=== PATIENT | male | born 1975 | race African-American/Black ===

== ENCOUNTER 2020-10-28 01:44 | Emergency (ER) | payer MEDICAID, OTHER ==
[~2020-10-28] VITALS: Ht 177.8 cm; Wt 83.9 kg
--- NOTE | 2020-10-28 02:08 | NUR ---
Patient ambulated with steady gait into ER c/o intermitten nonradiating CP, describing pain as 6/10 shabazz pain that started 2 days ago. A/O x4, no SOB or labored breathing, afebrile. Clear speech, complete sentences.
--- NOTE | 2020-10-28 02:10 | NUR ---
Dr. Thompson at bedside, MSE in progress.
[2020-10-28 02:39] LABS: HEMATOCRIT 45.9 % (36.7-47.1); MEAN CORPUSCULAR HEMOGLOBIN 28.7 uug (23.8-33.4); MEAN CORPUSCULAR VOLUME 88.2 fL (73.0-96.2); PLATELET COUNT (AUTO) 320 K/uL (152-348)
[2020-10-28 02:51] LABS: BILIRUBIN,DIRECT 0.1 mg/dL (0.0-0.2); BILIRUBIN,TOTAL 0.2 mg/dL (0.2-1.0); CREATININE 1.3 mg/dL (0.6-1.3); POTASSIUM 3.8 mmol/L (3.5-5.1); TOTAL PROTEIN, SERUM 8.1 g/dL (6.4-8.2)
[2020-10-28] MEDS: MAG HYDROX/AL HYDROX/SIMETH 30 ML LIQUID UDC PO ONE (03:40)
[2020-10-28] MEDS: PANTOPRAZOLE SODIUM 40 MG TABLET.DR PO ONE (03:45)
[2020-10-28] MEDS ORDERED: PANTOPRAZOLE SODIUM 40 MG TABLET.DR PO ONE (03:50)
[2020-10-28] MEDS ORDERED: MAG HYDROX/AL HYDROX/SIMETH 30 ML LIQUID UDC ONE (03:50)
[2020-10-28] MEDS ORDERED: IV NORMAL SALINE 250 ML IV ONE (04:07)
[2020-10-28] MEDS ORDERED: SWABABLE VALVE TRANSFER SET EA MC ONE (04:07)
[2020-10-28] MEDS ORDERED: IOHEXOL 350 100 ML INFUS..BTL ONE (04:07)
--- NOTE | 2020-10-28 04:11 | NUR ---
PT BEING TAKEN DOWN FOR CT.
--- NOTE | 2020-10-28 04:27 | NUR ---
PT RETURNED FROM CT, STABLE CONDITION.
--- NOTE | 2020-10-28 05:43 | NUR ---
Pt resting in bed, no SOB or labored breathing. Denies any pain/discomfort at this time. Awake and is using his phone, pt able to ambulate to restroom with steady gait.
--- NOTE | 2020-10-28 06:24 | NUR ---
Patient discharged to home in stable condition. A/O x4, no SOB or labored breathing. Denies any pain/discomfort. Written and verbal after care instructions given. Patient verbalizes understanding of instructions. Stressed follow up or return to ER for worsening s/s. Steady gait.
[2020-10-28 06:25] VITALS: BP 114/63
== END 2020-10-28 06:25 | disposition home or self-care (01) ==
LOC: ER 01:49
DX: R07.9 Chest pain, unspecified (principal); R00.0 Tachycardia, unspecified
CPT/HCPCS: 36415; 71045; 71275; 80048; 80076; 83690; 84484 ×2; 85025; 85379; 93005; 99285; Q9967; 70030-TC; A4663; J7030; J7050

== ENCOUNTER 2020-10-31 18:56 | Emergency (ER) | payer OTHER ==
[~2020-10-31] VITALS: Ht 180.3 cm; Wt 95.3 kg
[2020-10-31] MEDS ORDERED: ONDANSETRON 4 MG/2 ML VIAL IV ONE (19:45)
[2020-10-31] MEDS ORDERED: ASPIRIN 81 MG TAB.CHEW PO ONE (19:45)
[2020-10-31] MEDS ORDERED: NITROGLYCERIN OINT 1 GM PACKET TP ONE (19:45)
[2020-10-31] MEDS ORDERED: HYDR-4209 PO (19:49)
[2020-10-31] MEDS ORDERED: LORA2TAB95 PO (19:49)
--- NOTE | 2020-10-31 20:27 | NUR ---
Patient eloped from facility. ER physician notified.
== END 2020-10-31 20:30 | disposition left against medical advice (07) ==
LOC: ER 18:57
DX: R07.9 Chest pain, unspecified (principal); G47.00 Insomnia, unspecified; R94.31 Abnormal electrocardiogram [ECG] [EKG]; F17.210 Nicotine dependence, cigarettes, uncomplicated; R03.0 Elevated blood-pressure reading, without diagnosis of hypertension
CPT/HCPCS: 93005; A4663

== ENCOUNTER 2022-11-13 14:07 | Emergency (ER) | payer OTHER ==
[~2022-11-13] VITALS: Ht 177.8 cm; Wt 93.0 kg
[~2022-11-13 14:07] MED LIST: HYDR-4209 PO; LORA2TAB95 PO
[2022-11-13] MEDS ORDERED: PROM6.2516 PO (15:41)
[2022-11-13] MEDS ORDERED: BUSP15TA3 PO (15:41)
[2022-11-13 16:02] VITALS: BP 124/87; TEMP 98.2; O2SAT 99
== END 2022-11-13 16:02 | disposition home or self-care (01) ==
LOC: ER 14:07
DX: F41.8 Other specified anxiety disorders (principal); F17.210 Nicotine dependence, cigarettes, uncomplicated; Z76.0 Encounter for issue of repeat prescription; Z79.899 Other long term (current) drug therapy
CPT/HCPCS: A4663

== ENCOUNTER 2025-01-11 13:14 | Emergency (ER) | payer MEDICAID, OTHER ==
[~2025-01-11] VITALS: Ht 177.8 cm; Wt 90.7 kg
[~2025-01-11 13:14] MED LIST changes: +BUSP15TA3 PO; +PROM6.2516 PO
[2025-01-11 13:17] VITALS: BP 123/91
[2025-01-11] MEDS ORDERED: ALBU0.63 IH (13:25)
[2025-01-11] MEDS ORDERED: ALBU18HF2 INH (13:28)
[2025-01-11 13:34] VITALS: BP 123/91; TEMP 97.6; O2SAT 97
== END 2025-01-11 13:34 | disposition home or self-care (01) ==
LOC: ER 13:14
DX: J45.909 Unspecified asthma, uncomplicated (principal); F12.90 Cannabis use, unspecified, uncomplicated; F17.200 Nicotine dependence, unspecified, uncomplicated; Z76.0 Encounter for issue of repeat prescription; Z79.899 Other long term (current) drug therapy; Z88.7 Allergy status to serum and vaccine
CPT/HCPCS: A4606; A4663